=== PATIENT | female | born 1945 | race Caucasian/White ===

== ENCOUNTER → 2024-01-30 14:02 | Outpatient (REF) | payer OTHER, SELFPAY | LOC: HWRAD 14:02 | PROVIDERS: ATTENDING PHYSICIAN Nurse Practitioner Primary Care | DX: I10 Essential (primary) hypertension (principal); E78.2 Mixed hyperlipidemia; R06.09 Other forms of dyspnea; Z87.891 Personal history of nicotine dependence; R05.3 Chronic cough | CPT/HCPCS: 71046 ==

== ENCOUNTER → 2024-01-31 10:15 | Outpatient (REF) | payer OTHER, SELFPAY | LOC: HWCARD 10:15 | PROVIDERS: ATTENDING PHYSICIAN Nurse Practitioner Primary Care | DX: I10 Essential (primary) hypertension (principal); E78.2 Mixed hyperlipidemia; R06.09 Other forms of dyspnea | CPT/HCPCS: 93005 ==

== ENCOUNTER → 2024-11-01 09:15 | Outpatient (REF) | payer OTHER, SELFPAY | LOC: HWRAD 09:15 | PROVIDERS: ATTENDING PHYSICIAN Registered Nurse | DX: E04.1 Nontoxic single thyroid nodule (principal) | CPT/HCPCS: 76536 ==

== ENCOUNTER → 2024-11-23 14:33 | Outpatient (REF) | payer OTHER, SELFPAY ==
--- NOTE | 2024-11-23 15:45 | CARDSERVLU ---
Echocardiogram with Lumason completed after protocol screening completed. Allergies verified.
Patent IV site: _Left wrist____
IV site flushed with 0.9% NaCl pre and post administration.
Diluted bolus method utilized to enhance visualization of ventricular thomson.
Total volume given: __2.5__ mL
Patient tolerated all procedures well without complications.
== END ==
LOC: RCS 14:33
PROVIDERS: ATTENDING PHYSICIAN Registered Nurse
DX: J44.9 Chronic obstructive pulmonary disease, unspecified (principal); R06.09 Other forms of dyspnea
CPT/HCPCS: 93306; Q9950